=== PATIENT | female | born 1995 | race Caucasian/White ===

== ENCOUNTER 2016-03-29 17:49 | Emergency (ER) | payer BC ==
[~2016-03-29] VITALS: Ht 162.6 cm; Wt 63.5 kg
[2016-03-29] MEDS ORDERED: RX-CYCLOBENZAPRINE 10 MG (FLEXERIL) TAB PPK#3 PO STA (18:48)
[2016-03-29] MEDS ORDERED: CYCL10TA9 PO (18:58)
--- NOTE | 2016-03-29 18:58 | ED Back Pain ---
General Chief Complaint: Back Problems Stated Complaint: LOWER BACK PAIN/INJ Nursing Triage Note: PT TO ED 9 W/ MOTHER ET SISTER FOR C/O LOWER BACK PAIN ONSET YESTERDAY AFTER LIFTING. NO OTHER C/O VOICED Nursing Sepsis Screen: No Definite Risk Source of Information: Patient Exam Limitations: No Limitations History of Present Illness Time Seen by Provider: 18:40 Initial Comments Here with complaint of low back pain onset yesterday after weightlifting. She states that she was doing some squats and felt pain in the middle on the low back. She qualifies it that the pain is really on the left side at the SI joint. Denies any radiculopathy currently. She denies numbness or weakness. She is walking okay. She states the pain is worse with transitions and feels like an ache. Location: Lumbar Spine, Paraspinous Muscles Timing/Duration: 1 Day Severity: Mild Pain/Injury Location: Back, Chest Method of Injury: Other (lifting) Modifying Factors: Improves With Movement, Improves With Pain Medication, Improves With Rest Associated Symptoms: muscle spasmsNo fever, No weakness, No numbness in legs/ feet, No tingling in legs/feet, No sensory/motor loss, lower back painNo loss of bladder control, No loss of bowel control Allergies and Home Medications Allergies Uncoded Allergies: [id number] (SULFA (SULFONAMIDE ANTIBIOTICS)) (Allergy, Mild, 06/25/09) Home Medications Cyclobenzaprine HCl 10 Mg Tablet #10 10 MG PO Q8H PRN PRN SPASMS Prescribed by: NARCISA ARCE on 03/29/16 6067 Constitutional: see HPINo chills, No fever Respiratory: no symptoms reported Cardiovascular: no symptoms reported Gastrointestinal: no symptoms reported Genitourinary: no symptoms reported Musculoskeletal: back pain muscle pain muscle stiffness Skin: no symptoms reported Psychiatric/Neurological: No Symptoms Reported Past Bmlukwi-Klsibu-Lngitj Hx Patient Social History Alcohol Use: Denies Use Recreational Drug Use: No Smoking Status: Never a Smoker Recent Foreign Travel: No Contact w/Someone Who Travel: No Recent Infectious Disease Expo: No Recent Hopitalizations: No Surgeries HX Surgeries: Yes (KIDNEY, SLY MYLES REPAIR) Surgeries: Orthopedic Respiratory Hx Respiratory Disorders: No Cardiovascular Hx Cardiac Disorders: No Neurological Hx Neurological Disorders: No Reproductive System Hx Reproductive Disorders: No Genitourinary Hx Genitourinary Disorders: Yes (KIDNEY REFLUX) Gastrointestinal Hx Gastrointestinal Disorders: No Musculoskeletal Hx Musculoskeletal Disorders: No Endocrine Hx Endocrine Disorders: No HEENT HX ENT Disorders: No Cancer Hx Cancer: No Psychosocial Hx Psychiatric Problems: No Integumentary HX Skin/Integumentary Disorder: No Blood Transfusions Hx Blood Disorders: No Reviewed Nursing Assessment Reviewed/Agree w Nursing PMH: Yes Family Medical History Significant Family History: No Pertinent Family Hx Physical Exam Vital Signs Vital Sign - Last 12Hours 03/29/16 17:59 Temp 97.8 Pulse 98 Resp 18 B/P 127/79 Pulse Ox 99 O2 Delivery Room Air Capillary Refill : Less Than 3 Seconds General Appearance: No Apparent Distress WD/WN Cardiovascular: Regular Rate, Rhythm No Murmur Respiratory: Lungs Clear Normal Breath Sounds Back: No CVA Tenderness No Vertebral Tenderness Muscle Spasm Other (tender at the left SI joint) Extremity: Normal Inspection Normal Range of Motion Non Tender Neurologic/Psychiatric: Alert Oriented x3 Skin: Normal Color Warm/Dry Progress/Results/Core Measures Results/Orders My Orders Orders-NARCISA ARCE MD Rx-Cyclobenzaprine Tablet (Rx-Flexeril T (03/29/16 18:48) Vital Signs/I&O Vital Sign - Last 12Hours 03/29/16 17:59 Temp 97.8 Pulse 98 Resp 18 B/P 127/79 Pulse Ox 99 O2 Delivery Room Air Blood Pressure Mean: 95 Progress Note : Progress Note Seen and evaluated. Reviewed treatment options. Rx Flexeril go pack given. Discharged home with return precautions. Patient verbalize understanding instructions and agreement with plan. Departure Impression Impression: Primary Impression: Back strain Qualified Code: S39.012A - Strain of muscle, fascia and tendon of lower back, initial encounter Disposition: 01 HOME, SELF-CARE Condition: Improved Departure-Patient Inst. Decision time for Depature: 18:50 Referrals: TIFFANY COLIN DO (PCP/Family) Primary Care Physician Patient Instructions: Lumbar Muscle Strain (DC) Add. Discharge Instructions: All discharge instructions reviewed with patient and/or family. Voiced understanding. Take medications as directed. You may take ibuprofen 600 mg every 8 hours as needed for pain. You may use the lidocaine patch to the affected area per package directions. You may purchase the patches [id number] and options include salon pas lidocaine patch, icy hot with lidocaine patch or Aspercreme with lidocaine patch. Return for worse pain, fever, vomiting, weakness, breathing problems, problems walking or going to the bathroom, numbness between your legs or other concerns as needed. Scripts Cyclobenzaprine HCl 10 Mg Tnlrwe20 Mg PO Q8H PRN SPASMS #10 TAB Prov:NARCISA ARCE MD 03/29/16 NARCISA ARCE MD Mar 29, 2016 18:58
[2016-03-29 18:59] VITALS: BP 0/0
== END 2016-03-29 18:56 | disposition home or self-care (01) ==
LOC: EDUNIT# 17:49 → ER 17:51
DX: S39.012A Strain of muscle, fascia and tendon of lower back, initial encounter (principal); X50.3XXA Overexertion from repetitive movements, initial encounter; Y93.B9 Activity, other involving muscle strengthening exercises; Y99.8 Other external cause status
CPT/HCPCS: 99283

== ENCOUNTER 2017-02-12 08:27 | Outpatient (RCR) | payer BC ==
[~2017-02-12 08:27] MED LIST: CYCL10TA9 PO
== END 2017-03-06 11:51 | disposition home or self-care (01) ==
DX: M77.8 Other enthesopathies, not elsewhere classified (principal)